=== PATIENT | female | born 1995 | race Caucasian/White ===

== ENCOUNTER 2017-07-26 23:47 | Emergency (ER) | payer MEDICAID ==
[~2017-07-26] VITALS: Ht 154.9 cm; Wt 68.9 kg
[2017-07-26 23:53] VITALS: BP 136/76; Ht 154.9 cm; Wt 68.9 kg
== END 2017-07-27 01:48 | disposition home or self-care (01) ==
LOC: ED 23:47
DX: S69.91XA Unspecified injury of right wrist, hand and finger(s), initial encounter (principal); X58.XXXA Exposure to other specified factors, initial encounter; Y93.89 Activity, other specified; Y92.89 Other specified places as the place of occurrence of the external cause; Y99.8 Other external cause status
CPT/HCPCS: A4570; Q0092